=== PATIENT | male | born 1945 | race Caucasian/White ===

== ENCOUNTER 2018-01-02 07:44 | Outpatient (CLI) | payer OTHER ==
[~2018-01-02 07:44] MED LIST: ASPIR 8181 MG; COZAAR50 MG; DOXYCYCLINE HY100 MG PO; FOLIC ACID0.8 M1; GLIMEPIRIDE4 MG; INTEGRA CAPSUL1 EACH; LEVAQUIN500 MG PO; LEVAQUIN750 MG PO; MEDROLPACK PO; METFORMIN HCL500 MG; METOPROLOL ER-1 EAC2; OMEPRAZOLE20 MG PO; PROBIOTIC1 EACH PO; ULTRACET PO; ZOCOR5 MG
== END 2018-01-02 08:00 | disposition home or self-care (01) ==
LOC: NUCLEAR 07:44
DX: C18.4 Malignant neoplasm of transverse colon (principal)
CPT/HCPCS: 78815; A9552

== ENCOUNTER 2018-02-04 07:00 | Inpatient (IN) | payer OTHER ==
[~2018-02-04] VITALS: Ht 165.1 cm; Wt 86.2 kg
[2018-02-04] MEDS ORDERED: METOPROLOL SUCC25 MG PO (08:20)
[2018-02-09] MEDS ORDERED: PERCOCET 5-3251 EACH PO (13:04)
[2018-02-09] MEDS ORDERED: NEURONTIN300 MG PO (13:04)
[2018-02-09] MEDS ORDERED: FLAGYL500MG PO (13:04)
[2018-02-09] MEDS ORDERED: MIRALAX17 GM PO (13:04)
[2018-02-09] MEDS ORDERED: INTESTINEX680 M1 PO (13:10)
[2018-02-09] MEDS ORDERED: OMEPRAZOLE20 MG PO (13:10)
[2018-02-10] MEDS ORDERED: LEVAQUIN750 MG PO (09:51)
== END 2018-02-10 11:20 | disposition home or self-care (01) | DRG 355 ==
LOC: SURG 02-07 06:00 → O/R 02-07 06:00 → SURH 02-07 07:00 → SURG 02-07 18:14 → SURH 02-07 18:45 → SURG 02-10 11:20
PROVIDERS: Surgery; Urology
PROC: 0KXL0Z6 Transfer Left Abdomen Muscle, Transverse Rectus Abdominis Myocutaneous Flap, Open Approach (ICD-10-PCS; 2018-02-07)
PROC: 0KXK0Z6 Transfer Right Abdomen Muscle, Transverse Rectus Abdominis Myocutaneous Flap, Open Approach (ICD-10-PCS; 2018-02-07)
PROC: 0JB80ZZ Excision of Abdomen Subcutaneous Tissue and Fascia, Open Approach (ICD-10-PCS; 2018-02-07)
PROC: 0T7D8DZ Dilation of Urethra with Intraluminal Device, Via Natural or Artificial Opening Endoscopic (ICD-10-PCS; 2018-02-07)
PROC: 3E0F7GC Introduction of Other Therapeutic Substance into Respiratory Tract, Via Natural or Artificial Opening (ICD-10-PCS; 2018-02-07)
PROC: 0WUF0JZ Supplement Abdominal Wall with Synthetic Substitute, Open Approach (ICD-10-PCS; principal; 2018-02-07 07:00)
PROC: 0WJF4ZZ Inspection of Abdominal Wall, Percutaneous Endoscopic Approach (ICD-10-PCS; 2018-02-07 07:00)
PROC: 0WUF0JZ Supplement Abdominal Wall with Synthetic Substitute, Open Approach (ICD-10-PCS; 2018-02-07 07:00)
DX: K43.0 Incisional hernia with obstruction, without gangrene (principal); K42.0 Umbilical hernia with obstruction, without gangrene; R33.8 Other retention of urine; N35.8 Other urethral stricture; G47.33 Obstructive sleep apnea (adult) (pediatric); J45.40 Moderate persistent asthma, uncomplicated; E66.09 Other obesity due to excess calories; I10 Essential (primary) hypertension; E11.69 Type 2 diabetes mellitus with other specified complication; E11.21 Type 2 diabetes mellitus with diabetic nephropathy; E78.4 Other hyperlipidemia; Z92.21 Personal history of antineoplastic chemotherapy; Z85.038 Personal history of other malignant neoplasm of large intestine

== ENCOUNTER → 2018-05-10 | Outpatient (CLI) | payer OTHER ==
[~2018-05-10] MED LIST changes: +FLAGYL500MG PO; +INTESTINEX680 M1 PO; +METOPROLOL SUCC25 MG PO; +MIRALAX17 GM PO; +NEURONTIN300 MG PO; +PERCOCET 5-3251 EACH PO
== END | disposition home or self-care (01) ==
LOC: MRI 10:48
DX: N28.1 Cyst of kidney, acquired (principal)
CPT/HCPCS: 74183; A9579

== ENCOUNTER 2018-07-18 07:48 | Outpatient (CLI) | payer OTHER | END 2018-07-18 07:58 | disposition home or self-care (01) | LOC: TOM 07:48 | DX: C18.4 Malignant neoplasm of transverse colon (principal) | CPT/HCPCS: 71260; 74177; Q9965 ==

== ENCOUNTER 2018-12-17 07:33 | Outpatient (CLI) | payer OTHER | END 2018-12-17 07:53 | disposition home or self-care (01) | LOC: TOM 07:33 | DX: C18.4 Malignant neoplasm of transverse colon (principal); K66.0 Peritoneal adhesions (postprocedural) (postinfection) | CPT/HCPCS: 71260; 74176; Q9965 ==

== ENCOUNTER → 2019-05-29 13:36 | Outpatient (CLI) | payer OTHER | END | disposition home or self-care (01) | LOC: LAB 13:36 | DX: N28.1 Cyst of kidney, acquired (principal) ==

== ENCOUNTER 2019-06-13 09:26 | Outpatient (CLI) | payer OTHER | END 2019-06-13 09:40 | disposition home or self-care (01) | LOC: MRI 09:26 | DX: N28.1 Cyst of kidney, acquired (principal) | CPT/HCPCS: 74183; A9575 ==

== ENCOUNTER 2020-03-19 07:09 | Outpatient (CLI) | payer OTHER | END 2020-03-19 07:18 | disposition home or self-care (01) | LOC: RAD 07:09 | PROVIDERS: ATTEND Urology | DX: N21.0 Calculus in bladder (principal) ==

== ENCOUNTER 2020-03-26 07:51 | Outpatient (CLI) | payer OTHER ==
[~2020-03-26 07:51] MED LIST changes: -ASPIR 8181 MG; +ASPIR 8181 MG PO; +ZOCOR40 MG PO; -ZOCOR5 MG
== END 2020-03-26 07:55 | disposition home or self-care (01) ==
LOC: RAD 07:51
PROVIDERS: ATTEND Urology
DX: E11.9 Type 2 diabetes mellitus without complications (principal); I11.9 Hypertensive heart disease without heart failure

== ENCOUNTER 2020-04-01 11:14 | Inpatient (IN) | payer OTHER ==
[~2020-04-01] VITALS: Ht 165.1 cm; Wt 95.3 kg
[2020-04-05] MEDS ORDERED: FORTAMET1000 MG PO (12:59)
[2020-04-05] MEDS ORDERED: PROSCAR5 MG PO (13:00)
[2020-04-05] MEDS ORDERED: INTESTIN PO (13:00)
[2020-04-05] MEDS ORDERED: ENALAPRIL MALE2.5 MG PO (13:00)
[2020-04-07] MEDS ORDERED: TAMSULOSIN HCL0.4 MG PO (08:37)
[2020-04-07] MEDS ORDERED: INTESTINEX680 M1 PO (08:37)
[2020-04-07] MEDS ORDERED: PEPTO-BISM262 MG/15 (08:37)
[2020-04-07] MEDS ORDERED: GABAPENTIN100 M2 PO (08:38)
[2020-04-07] MEDS ORDERED: HORIZANT300 MG PO (08:40)
== END 2020-04-09 08:26 | disposition home or self-care (01) | DRG 714 ==
LOC: EDSTATUS 04-05 10:30 → ADM 04-05 10:30 → CIR.AMB 04-05 10:30 → O/R 04-07 05:25 → SURG 04-07 05:25 → SURH 04-07 07:00 → SURG 04-07 11:27
PROVIDERS: ADMIT Urology; ATTEND Urology
PROC: 0TCB8ZZ Extirpation of Matter from Bladder, Via Natural or Artificial Opening Endoscopic (ICD-10-PCS; 2020-04-07)
PROC: 0VB08ZZ Excision of Prostate, Via Natural or Artificial Opening Endoscopic (ICD-10-PCS; principal; 2020-04-07 07:00)
DX: N40.0 Benign prostatic hyperplasia without lower urinary tract symptoms (principal); N21.0 Calculus in bladder; E11.21 Type 2 diabetes mellitus with diabetic nephropathy; I10 Essential (primary) hypertension; E88.81 Metabolic syndrome and other insulin resistance; E78.5 Hyperlipidemia, unspecified

== ENCOUNTER 2020-07-20 08:02 | Outpatient (CLI) | payer OTHER ==
[~2020-07-20 08:02] MED LIST changes: +ENALAPRIL MALE2.5 MG PO; +FORTAMET1000 MG PO; +GABAPENTIN100 M2 PO; +HORIZANT300 MG PO; +INTESTIN PO; +PEPTO-BISM262 MG/15; +PROSCAR5 MG PO; +TAMSULOSIN HCL0.4 MG PO
== END 2020-07-20 08:15 | disposition home or self-care (01) ==
LOC: MRI 08:02
PROVIDERS: ATTEND Urology
DX: Q61.02 Congenital multiple renal cysts (principal); R16.1 Splenomegaly, not elsewhere classified
CPT/HCPCS: 74183; A9575

== ENCOUNTER 2020-09-27 13:04 | Outpatient (CLI) | payer OTHER | END 2020-09-27 14:54 | disposition HB | LOC: MRI 13:04 | DX: M48.07 Spinal stenosis, lumbosacral region (principal); M25.552 Pain in left hip; M54.5 Low back pain; M54.16 Radiculopathy, lumbar region | CPT/HCPCS: 72148 ==

== ENCOUNTER 2021-04-12 14:37 | Outpatient (CLI) | payer OTHER | END 2021-04-12 14:44 | disposition home or self-care (01) | LOC: RAD 14:37 | PROVIDERS: ATTEND Specialist | DX: J45.998 Other asthma (principal) ==

== ENCOUNTER 2021-04-19 08:00 | Outpatient (CLI) | payer OTHER | END 2021-04-19 08:30 | disposition home or self-care (01) | LOC: PPH VACUNA 08:00 | DX: Z23 Encounter for immunization (principal) ==

== ENCOUNTER 2021-09-22 13:29 | Outpatient (CLI) | payer OTHER | END 2021-09-22 13:35 | disposition home or self-care (01) | LOC: RAD 13:29 | PROVIDERS: ATTEND Specialist | DX: J45.998 Other asthma (principal) ==

== ENCOUNTER → 2021-11-10 | Outpatient (CLI) | payer OTHER | END | disposition home or self-care (01) | LOC: PPH VACUNA 08:00 | PROVIDERS: ATTEND Emergency Medicine Pediatric Emergency Medicine | DX: Z23 Encounter for immunization (principal) ==

== ENCOUNTER 2022-08-15 09:41 | Outpatient (CLI) | payer OTHER | END 2022-08-15 10:02 | disposition home or self-care (01) | LOC: MRI 09:41 | PROVIDERS: ATTEND Urology | DX: N28.1 Cyst of kidney, acquired (principal); N21.0 Calculus in bladder; F52.21 Male erectile disorder | CPT/HCPCS: 74181 ==

== ENCOUNTER → 2022-10-26 | Outpatient (CLI) | payer OTHER | END | disposition home or self-care (01) | LOC: RAD 10:37 | PROVIDERS: ATTEND Specialist | DX: J84.10 Pulmonary fibrosis, unspecified (principal) ==

== ENCOUNTER 2023-01-03 07:39 | Outpatient (CLI) | payer OTHER | END 2023-01-03 07:51 | disposition home or self-care (01) | LOC: TOM 07:39 | PROVIDERS: ATTEND Internal Medicine | DX: C18.4 Malignant neoplasm of transverse colon (principal) | CPT/HCPCS: 71260; 74177; Q9965 ==

== ENCOUNTER 2024-08-22 08:33 | Outpatient (CLI) | payer OTHER | END 2024-08-22 08:38 | disposition home or self-care (01) | LOC: SONOGRAMA 08:33 | PROVIDERS: ATTEND Urology | DX: C64.2 Malignant neoplasm of left kidney, except renal pelvis (principal) ==

== ENCOUNTER 2024-11-04 11:28 | Outpatient (CLI) | payer OTHER | END 2024-11-04 11:30 | disposition home or self-care (01) | LOC: RAD 11:28 | DX: M54.59 Other low back pain (principal); M54.50 Low back pain, unspecified; M99.03 Segmental and somatic dysfunction of lumbar region; M99.05 Segmental and somatic dysfunction of pelvic region ==

== ENCOUNTER 2025-02-17 13:49 | Outpatient (CLI) | payer OTHER | END 2025-02-17 14:11 | disposition home or self-care (01) | LOC: SONOGRAMA 13:49 | PROVIDERS: ATTEND Urology | DX: C64.2 Malignant neoplasm of left kidney, except renal pelvis (principal) ==

== ENCOUNTER 2025-03-08 11:20 | Emergency (ER) | payer OTHER ==
[~2025-03-08] VITALS: Ht 165.1 cm; Wt 93.0 kg
[2025-03-08] MEDS ORDERED: COZAAR25 MG (14:15)
[2025-03-08] MEDS ORDERED: GABAPENTIN300 M2 (14:16)
[2025-03-08] MEDS ORDERED: EZALLOR SPRINKLE5 MG (14:16)
[2025-03-08] MEDS ORDERED: GLIMEPIRIDE4 M1 PO (14:16)
[2025-03-08] MEDS ORDERED: OMEGA-31000 MG (14:17)
[2025-03-08] MEDS ORDERED: JANUMET XR 50-1 EAC1 PO (14:17)
[2025-03-08] MEDS ORDERED: DIPHENHYDRAMINE HCL 50 MG/ML VIAL 1ML IV ONE (14:30)
[2025-03-08] MEDS ORDERED: DEXAMETHASONE SODIUM PHOSPHATE 4 MG/ML VIAL IV ONE (14:30)
[2025-03-08] MEDS ORDERED: FAMOtidine 10 MG/ML (4ML VIAL) IV ONE (14:30)
[2025-03-08] MEDS ORDERED: DEXAMETHASONE SODIUM PHOSPHATE 4 MG/ML VIAL ONE (14:50)
[2025-03-08] MEDS ORDERED: DIPHENHYDRAMINE HCL 50 MG/ML VIAL 1ML ONE (14:50)
[2025-03-08] MEDS ORDERED: FAMOTIDINE/PF 20 MG/2 ML VIAL ONE (14:50)
[2025-03-08] MEDS ORDERED: TACLONEX SUSPEN60 GM TOP (16:07)
== END 2025-03-08 17:56 | disposition home or self-care (01) ==
LOC: ER 11:34
DX: L30.9 Dermatitis, unspecified (principal); T78.40XA Allergy, unspecified, initial encounter; R21 Rash and other nonspecific skin eruption; I10 Essential (primary) hypertension; E11.9 Type 2 diabetes mellitus without complications; Z79.84 Long term (current) use of oral hypoglycemic drugs; Z88.1 Allergy status to other antibiotic agents
CPT/HCPCS: 96365; 99282; J1100; J1200; J3490